=== PATIENT | male | born 2005 | race Caucasian/White ===

== ENCOUNTER 2024-05-18 17:38 | Emergency (ER) | payer OTHER, SELFPAY ==
[2024-05-18 18:55] VITALS: BP 136/91; PULSE 91; RESP 16; TEMP 37.1; O2SAT 100; BMI 24.3
--- NOTE | 2024-05-18 18:56 | ED_ITS ---
HPI - Wound/Laceration General Chief Complaint: Skin/Abscess/Foreign Body Stated Complaint: ? right buttock abscess Time Seen by Provider: 05/18/24 23:04 Source: patient, RN notes reviewed and old records reviewed Mode of arrival: ambulatory Limitations: no limitations History of Present Illness ED Provider: Efren WEST narrative: 18-year-old male presents for evaluation of an abscess to his right buttocks. Patient reports the abscess has been present for the last 5 days or so. He reports pain and swelling. He has been unable to visualize the area Reports previous abscesses in similar areas He denies any fevers, chills He is not a diabetic Related Data Previous Rx's ?Medication ?Instructions ?Recorded cephalexin 500 mg capsule 500 mg PO QID #27 caps 05/19/24 Allergies Allergy/AdvReac Type Severity Reaction Status Date / Time No Known Allergies Allergy Verified 05/18/24 18:57 Review of Systems Constitutional: Constitutional: Denies body ache(s), Denies chills and Denies fever(s) Integumentary/Breasts: Skin/Breast: Reports erythema and Reports skin swelling PMFSH Social History Social History Advance Directives: No Advance Directives Information Provided: No Physical Exam Vital Signs: Vital Signs: Last Vital Signs Temp 98.3 F 05/18/24 22:44 Pulse 88 05/18/24 22:44 Resp 19 05/18/24 22:44 BP 134/88 05/18/24 22:44 Pulse Ox 100 05/18/24 22:44 O2 Del Method Room Air 05/18/24 22:44 BMI result Body Mass Index 24.3 Const: General: healthy appearing, comfortable, no acute distress, alert and awake Nutritional Appearance: well nourished Orientation/consciousness: patient oriented x3 HEENT: Head: Yes normocephalic and Yes atraumatic Eyes: Eyelids: Yes eyelids normal Conjunctivae: conjunctivae normal Sclerae: sclerae normal Corneas: corneas normal Pupils: Equal, round and reactive pupils present EOM: EOMs intact bilaterally Neck: Neck: Yes full ROM Resp: Effort & Inspection: normal respiratory effort, able to speak in complete sentences and not labored Skin: Other: Patient has a 2 cm area of induration to the right gluteal cleft. There is surrounding erythema and tenderness to palpation. General skin exam: elasticity normal Neuro: General: patient oriented x3 Cranial nerves: Yes Equal, round and reactive pupils present and Yes Bilaterally intact EOM present Cognition (Neuro): normal cognition Course Course Course Narrative: This is a rapid medical exam completed by Jose GRIJALVAN: Additional HPI, ROS, PE not included below will be deferred to primary provider. Pain at the right buttock with swelling. Denies pain with bowel movements. Medical Decision Making Medical Decision Making MDM Narrative: 18-year-old male presents for evaluation of an abscess to his right gluteal cleft. See procedure note. This abscess was incised and drained by PA student, Anitha Ulloa under my direct supervision. The patient tolerated the procedure well, there were no complications. Patient has no evidence of systemic infection he will be discharged with cephalexin, return precautions were given Differential Diagnosis Differential Diagnoses: The differential diagnosis associated with the presentation includes Abscess Sebaceous cyst Cellulitis Hemorrhoid Pilonidal cyst Procedures Abscess I/D Site: other (Right gluteal cleft) Side (if applicable): right Local Anesthetic: lidocaine 1% Amount of anesthesia used (mL): 4 Technique: incised with blade Amount of fluid expressed (mL): 5 Sent for culture/gram staining?: No Irrigation: Yes Packing used?: none Discharge Plan Discharge Clinical Impression: Abscess of skin or subcutaneous tissue Patient Disposition: Home, Self-Care Instructions: Incision and Drainage (ED) Additional Instructions: Keep the area clean and dry. Take cephalexin 4 times daily for 1 week. Apply warm compresses every 4 hours Use ibuprofen/Tylenol as needed for pain Follow-up with your primary doctor Return for new or worsening symptoms Prescriptions: New cephalexin 500 mg capsule 500 mg PO QID Qty: 27 0RF Print Language: Turkmen
[2024-05-18 22:44] VITALS: BP 134/88; PULSE 88; RESP 19; TEMP 36.8; O2SAT 100
[2024-05-19] MEDS: cephALEXin 500 MG CAPSULE PO (00:22)
[2024-05-19 00:27] VITALS: BP 111/55; PULSE 73; RESP 18; TEMP 37.2; O2SAT 99
[2024-05-19 00:28] VITALS: BP 111/55; PULSE 73; RESP 18; TEMP 37.2; O2SAT 99
== END 2024-05-19 00:25 | disposition home or self-care (01) ==
PROVIDERS: Emergency Provider Student in an Organized Health Care Education/Training Program
DX: L02.31 Cutaneous abscess of buttock (principal)
CPT/HCPCS: 10060; 99284